=== PATIENT | male | born 1990 | race African-American/Black ===

== ENCOUNTER 2024-04-09 11:59 | Emergency (ER) | payer OTHER ==
[2024-04-09] MEDS: Diphtheria,Pertussis(Acell),Tetanus Vaccine 0.5 ML Syringe IM ONE (12:38)
[2024-04-09] MEDS: Lidocaine 1% PF 2 ML SDV INJECT ONE (12:38)
== END 2024-04-09 13:32 | disposition home or self-care (01) ==
LOC: MW.ED 11:59
DX: S62.522B Displaced fracture of distal phalanx of left thumb, initial encounter for open fracture (principal); Z75.8 Other problems related to medical facilities and other health care; Z23 Encounter for immunization; W26.8XXA Contact with other sharp object(s), not elsewhere classified, initial encounter
CPT/HCPCS: 12001; 12002; 73140-26-FA; 73140-FA; 90471; 90715; 99283; 99283-25; J3490

== ENCOUNTER 2024-04-28 07:53 | Emergency (ER) | payer SELFPAY | END 2024-04-28 08:26 | disposition home or self-care (01) | LOC: MW.ED 07:53 | DX: Z48.02 Encounter for removal of sutures (principal); S61.012D Laceration without foreign body of left thumb without damage to nail, subsequent encounter | CPT/HCPCS: 99281 ==